=== PATIENT | male | born 1935 | race Two or more races ===

== ENCOUNTER 2016-10-18 15:01 | Inpatient (IN) | payer MEDICARE, MEDICAID ==
[~2016-10-18] VITALS: Ht 170.2 cm; Wt 54.4 kg
[2016-10-18 15:15] VITALS: BP 110/59
--- NOTE | 2016-10-18 16:05 | Emergency Room Report ---
History of Present Illness General Chief Complaint: Multiple Trauma/Fall Source: Patient, EMS Present Illness HPI 80 YO M BIBEMS for witnessed fall at home by HC worker. [facility] given [facility]x to "prevent an infection." States gaspar cath also was replaced. Not sure which Abx he was given. States he slipped and fell on back at home. EMS endorses signicant orthostatic hypotension on scene. Denies precipitating chest pain, SOB, palpitations, headache. Denies hitting head, headache, nausea/vomiting, blurry/ change of vision. Denies being on HTN medication. Allergies: Coded Allergies: No Known Allergies (Unverified , 10/18/16) Patient History Past Medical History: other - BPH with indwelling catheter Past Surgical History: none Pertinent Family History: none Social History: Denies: alcohol use, drug use, smoking Immunizations: UTD Reviewed Nursing Documentation: PMH: Agreed, PSxH: Agreed Nursing Documentation-PMH Past Medical History: No History, Except For Review of Systems All Other Systems: negative except mentioned in HPI Physical Exam Vital Signs Date Time Temp Pulse Resp B/P Pulse Ox O2 Delivery O2 Flow Rate FiO2 10/18/16 14:59 98.8 94 18 103/54 99 Room Air Sp02 EP Interpretation: abnormal General Appearance: normal inspection, well appearing, no apparent distress, alert, GCS 15, non-toxic Head: normocephalic, atraumatic Eyes: bilateral eye EOMI, bilateral eye PERRL ENT: normal ENT inspection, hearing grossly normal, normal voice Neck: normal inspection, full range of motion, supple, thyroid normal, no meningismus, no bony tend Respiratory: normal inspection, lungs clear, normal breath sounds, no respiratory distress, no retraction, no wheezing Cardiovascular #1: regular rate, rhythm, no edema Gastrointestinal: normal inspection, normal bowel sounds, non tender, soft, no guarding, no hernia Genitourinary: no CVA tenderness Musculoskeletal: normal inspection, normal range of motion, Dhruv's Sign negative, other - multiple acute abrasions overling midline of thoracic spine. Neurologic: normal inspection, alert, responsive, finish photographer III-XII nml as tested, motor strength/tone normal, speech normal, other - oriented to name, place, [place] president but not date Psychiatric: normal inspection, judgement/insight normal, mood/affect normal Skin: normal inspection, normal color, no rash Medical Decision Making Medicare Attestation I Tiara Saleh MD hereby attest that the medical record entry for date of service, 08/23/16 accurately reflects signatures/notations that I made in my capacity as MD when I treated/diagnosed the above listed Medicare beneficiary. I attest that this information is true, accurate and complete to the best of my knowledge. I understand that any falsification, omission, or concealment of material fact may subject me to administrative, civil, or criminal liability. This patient warrants hospital admission for extreme of age and has a condition that cannot be treated as outpatient. Diagnostic Impression: Primary Impression: Fall Qualified Codes: W19.XXXA - Unspecified fall, initial encounter Additional Impressions: Orthostatic hypotension Abrasion of back Qualified Codes: S20.412A - Abrasion of left back wall of thorax, initial encounter UTI (urinary tract infection) Qualified Codes: N30.00 - Acute cystitis without hematuria CKD (chronic kidney disease) Qualified Codes: N18.9 - Chronic kidney disease, unspecified ER Course RN checked BP and patient with significant orthostasis on standing in ED. Normalized BP while lying down. No signs of head trauma. No focal neuro deficits. Signs of trauma mild to thoracic spine Labs: leuks 15k. H&H stable. Elevated SerumCr. UA pending Thoracic spine Xray: no acute fx on ED review CXR negative for PNA Empiric Abx given for ?UTI for which patient saw PMD earlier Endorsed to Dr Currie for tele admission, monitoring of orthostatics, UTI EKG Diagnostic Results Rate: normal, other - 1st degree AV block Rhythm: NSR ST Segments: no acute changes Rhythm Strip Diag. Results EP Interpretation: yes Rate: 55 Rhythm: NSR, no PVC's, no ectopy Chest X-Ray Diagnostic Results EP Interpretation: Yes Findings: no consolidation, no effusion, no pneumothorax, no acute cardiopulmonary disease Number of Views: 1 Other X-Ray Diagnostic Results Other X-Ray Diagnostic Results : X-Ray Ordered: Thoracic spine xray EP Interpretation: Yes Findings: no fractures, no dislocation, no soft tissue swelling Number of Views: 2 Last Vital Signs Date Time Temp Pulse Resp B/P Pulse Ox O2 Delivery O2 Flow Rate FiO2 10/18/16 15:15 98.8 95 18 110/59 99 Room Air Status: improved Disposition: ADMITTED INPATIENT Condition: Serious Referrals: NOT CHOSEN RAJWINDER/,REFERRING (PCP) TIARA SALEH M.D. Oct 18, 2016 16:05
[2016-10-18 16:17] LABS: BASOPHILS % (AUTO) 1.1 % (0.0-2.0); EOSINOPHILS % (AUTO) 0.6 % (0.0-3.0); LYMPHOCYTES % (AUTO) 6.9 % (20.0-45.0); MEAN CORPUSCULAR HEMOGLOBIN 30.5 PG (27.0-31.0); MEAN CORPUSCULAR HGB CONC 33.2 G/DL (32.0-36.0); MEAN CORPUSCULAR VOLUME 92 FL (80-99); MEAN PLATELET VOLUME 7.5 FL (6.5-10.1); MONOCYTES % (AUTO) 7.2 % (1.0-10.0); NEUTROPHILS % (AUTO) 84.3 % (45.0-75.0); PLATELET COUNT 179 K/UL (150-450); RED CELL DISTRIBUTION WIDTH 14.2 % (11.6-14.8); WHITE BLOOD COUNT 15.3 K/UL (4.8-10.8)
[2016-10-18 16:45] LABS: ALANINE AMINOTRANSFERASE 22 U/L (3-41); ANION GAP 16 (5-15); ASPARTATE AMINO TRANSFERASE 32 U/L (5-40); CALCIUM 8.6 mg/dL (8.6-10.2); CARBON DIOXIDE 20 mEQ/L (20-30); CHLORIDE 103 mEQ/L (98-107); CREATININE 3.2 mg/dL (0.7-1.2); HEMOLYSIS 29; POTASSIUM 4.4 mEQ/L (3.4-4.9); SODIUM 139 mEQ/L (135-145); TOTAL PROTEIN 6.4 g/dL (6.6-8.7)
[2016-10-18 17:03] LABS: TROPONIN I < 0.30 ng/mL (<=0.30)
[2016-10-18 18:41] VITALS: BP 116/77
[2016-10-18] MEDS ORDERED: Miralax 17gm pkt ORAL PRN (19:15)
[2016-10-18] MEDS ORDERED: DuoNeb 0.5-3(2.5)mg/3ml neb HHN PRN (19:15)
[2016-10-18] MEDS ORDERED: Nitroglycerin Subl 0.4mg tab (Bottle Of 25) SL PRN (19:15)
[2016-10-18] MEDS ORDERED: Morphine Sulfate 2mg/ml Inj IVP PRN (19:15)
[2016-10-18 20:56] VITALS: BP 145/91
[2016-10-18] MEDS ORDERED: Cefepime HCl 2 GM in D5W 110 ML IV SCH (21:00)
[2016-10-18 21:59] VITALS: BP 149/84
[2016-10-18] MEDS: Heparin 5000 units/ml inj SUBQ SCH (23:09)
[2016-10-19] VITALS: BP 98/54
[2016-10-19] MEDS ORDERED: Vancomycin 1 GM in D5W 275 ML IV SCH (00:30)
[2016-10-19] MEDS ORDERED: Cefepime HCl 2 GM in D5W 110 ML IV SCH (01:00)
[2016-10-19] MEDS ORDERED: Vancomycin 1gm inj IVPB ONE (01:32)
[2016-10-19] MEDS ORDERED: Cefepime 2gm ONE (02:43)
[2016-10-19] MEDS: Cefepime HCl 2 GM in D5W 110 ML IV SCH (03:23)
[2016-10-19 04:00] VITALS: BP 96/54
[2016-10-19 08:00] LABS: BASOPHILS % (AUTO) 0.8 % (0.0-2.0); EOSINOPHILS % (AUTO) 1.5 % (0.0-3.0); MEAN CORPUSCULAR HEMOGLOBIN 30.3 PG (27.0-31.0); MEAN CORPUSCULAR HGB CONC 33.8 G/DL (32.0-36.0); MEAN CORPUSCULAR VOLUME 90 FL (80-99); MEAN PLATELET VOLUME 8.2 FL (6.5-10.1); MONOCYTES % (AUTO) 7.1 % (1.0-10.0); NEUTROPHILS % (AUTO) 77.7 % (45.0-75.0); PLATELET COUNT 166 K/UL (150-450); RED BLOOD COUNT 3.26 M/UL (4.70-6.10); RED CELL DISTRIBUTION WIDTH 14.2 % (11.6-14.8); WHITE BLOOD COUNT 10.7 K/UL (4.8-10.8)
[2016-10-19 08:11] VITALS: BP 126/66
[2016-10-19 08:21] LABS: ALANINE AMINOTRANSFERASE 16 U/L (3-41); ANION GAP 15 (5-15); ASPARTATE AMINO TRANSFERASE 21 U/L (5-40); CALCIUM 8.2 mg/dL (8.6-10.2); CARBON DIOXIDE 20 mEQ/L (20-30); CHLORIDE 105 mEQ/L (98-107); HEMOLYSIS 2; POTASSIUM 3.8 mEQ/L (3.4-4.9); SODIUM 140 mEQ/L (135-145); TOTAL PROTEIN 5.7 g/dL (6.6-8.7)
[2016-10-19] MEDS: Heparin 5000 units/ml inj SUBQ SCH ×2 (10:21→20:13)
--- NOTE | 2016-10-19 10:30 | Diagnostic Imaging Report ---
Indications: FALL Technique: Two views of the thoracic spine Comparison: None Findings: There is thoracolumbar scoliotic deformity. The remainder the bony alignment is normal. There is also thoracic kyphosis. Vertebral body heights are preserved. There is mild degenerative disc narrowing at multiple levels. The bones are osteoporotic. No acute fractures. No dislocations. The pedicles are intact. No gross paraspinous mass. Impression: No acute bony trauma Thoracic scoliotic deformity and thoracic kyphosis Disc degeneration Osteoporotic change
--- NOTE | 2016-10-19 10:32 | Diagnostic Imaging Report ---
Indication: FALL, chest pain Technique: One view of the chest Comparison: none Findings: Lungs and pleural spaces are clear. Heart size is normal. Impression: No acute process
--- NOTE | 2016-10-19 10:51 | Consultation ---
Consult Note Consult Note ID Dic # [id number] LORENZO CUTLER M.D. Oct 19, 2016 10:51
[2016-10-19 11:46] VITALS: BP 92/53
--- NOTE | 2016-10-19 13:33 | History and Physical ---
History of Present Illness General Date patient seen: Oct 19, 2016 Reason for Hospitalization: Multiple Trauma/Fall Present Illness HPI 80 year old male was brought in by paramedics for witnessed fall at home by HC worker. Patient was returning home from visit from [facility] office where he was given Abx. His gaspar cath also was replaced. He slipped and fell on back at home. EMS endorses significant orthostatic hypotension on scene. Pt was found to have leukocytosis and ATN in er, therefore he is being admitted for further evaluation. Allergies: Coded Allergies: No Known Allergies (Unverified , 10/18/16) Patient History Healthcare decision maker Resuscitation status Full Code Advanced Directive on File Past Medical/Surgical History Past Medical/Surgical History: (1) Chronic indwelling Gaspar catheter Review of Systems All Other Systems: negative except mentioned in HPI Physical Exam Lines, tubes and drains: peripheral HEENT: normocephalic, atraumatic Neck: non-tender, normal alignment Respiratory/Chest: chest wall non-tender, normal breath sounds Abdomen: normal bowel sounds, soft, abnormal bowel sounds Last 24 Hour Vital Signs Date Time Temp Pulse Resp B/P Pulse Ox O2 Delivery O2 Flow Rate FiO2 10/19/16 11:46 97.0 81 20 92/53 99 Room Air 10/19/16 08:11 97.3 73 20 126/66 99 Room Air 10/19/16 04:00 75 10/19/16 04:00 97.7 76 18 96/54 Room Air 10/19/16 00:00 91 10/19/16 00:00 99.5 92 16 98/54 95 Room Air 10/18/16 21:59 97.8 97 21 149/84 99 Room Air 10/18/16 21:30 97.8 95 20 145/91 99 Room Air 10/18/16 20:56 97.8 95 20 145/91 99 Room Air 10/18/16 18:41 98.0 97 19 116/77 97 Room Air 10/18/16 15:15 98.8 95 18 110/59 99 Room Air 10/18/16 14:59 98.8 94 18 103/54 99 Room Air Intake and Output 10/18/16 10/19/16 19:00 07:00 Intake Total 735.0 ml Output Total 1300 ml Balance -565.0 ml Intake IV Total 735.0 ml Output Urine Total 1300 ml Laboratory Tests Test 10/18/16 15:58 10/19/16 06:35 White Blood Count 15.3 K/UL (4.8-10.8) H 10.7 K/UL (4.8-10.8) Red Blood Count 3.20 M/UL (4.70-6.10) L 3.26 M/UL (4.70-6.10) L Hemoglobin 9.8 G/DL (14.2-18.0) L 9.9 G/DL (14.2-18.0) L Hematocrit 29.4 % (42.0-52.0) L 29.2 % (42.0-52.0) L Mean Corpuscular Volume 92 FL (80-99) 90 FL (80-99) Mean Corpuscular Hemoglobin 30.5 PG (27.0-31.0) 30.3 PG (27.0-31.0) Mean Corpuscular Hemoglobin Concent 33.2 G/DL (32.0-36.0) 33.8 G/DL (32.0-36.0) Red Cell Distribution Width 14.2 % (11.6-14.8) 14.2 % (11.6-14.8) Platelet Count 179 K/UL (150-450) 166 K/UL (150-450) Mean Platelet Volume 7.5 FL (6.5-10.1) 8.2 FL (6.5-10.1) Neutrophils (%) (Auto) 84.3 % (45.0-75.0) H 77.7 % (45.0-75.0) H Lymphocytes (%) (Auto) 6.9 % (20.0-45.0) L 13.0 % (20.0-45.0) L Monocytes (%) (Auto) 7.2 % (1.0-10.0) 7.1 % (1.0-10.0) Eosinophils (%) (Auto) 0.6 % (0.0-3.0) 1.5 % (0.0-3.0) Basophils (%) (Auto) 1.1 % (0.0-2.0) 0.8 % (0.0-2.0) Sodium Level 139 mEQ/L (135-145) 140 mEQ/L (135-145) Potassium Level 4.4 mEQ/L (3.4-4.9) 3.8 mEQ/L (3.4-4.9) Chloride Level 103 mEQ/L (98-107) 105 mEQ/L (98-107) Carbon Dioxide Level 20 mEQ/L (20-30) 20 mEQ/L (20-30) Anion Gap 16 (5-15) H 15 (5-15) Blood Urea Nitrogen 58 mg/dL (7-23) H 47 mg/dL (7-23) H Creatinine 3.2 mg/dL (0.7-1.2) H 2.0 mg/dL (0.7-1.2) H Estimat Glomerular Filtration Rate mL/min (>60) mL/min (>60) Glucose Level 106 mg/dL (74-106) 91 mg/dL (74-106) Calcium Level 8.6 mg/dL (8.6-10.2) 8.2 mg/dL (8.6-10.2) L Total Bilirubin 0.6 mg/dL (0.0-1.2) 0.6 mg/dL (0.0-1.2) Aspartate Amino Transf (AST/SGOT) 32 U/L (5-40) 21 U/L (5-40) Alanine Aminotransferase (ALT/SGPT) 22 U/L (3-41) 16 U/L (3-41) Alkaline Phosphatase 72 U/L (40-129) 63 U/L (40-129) Total Creatine Kinase 291 U/L (38-174) H Creatine Kinase MB Pending Troponin I < 0.30 ng/mL (<=0.30) Total Protein 6.4 g/dL (6.6-8.7) L 5.7 g/dL (6.6-8.7) L Albumin 3.3 g/dL (3.5-5.2) L 2.9 g/dL (3.5-5.2) L Globulin 3.1 g/dL 2.8 g/dL Albumin/Globulin Ratio 1.0 (1.0-2.7) 1.0 (1.0-2.7) Height (Feet): 5 Height (Inches): 7.00 Weight (Pounds): 120 Medications Current Medications Medications (Trade) Dose Ordered Sig/Amy Route PRN Reason Start Time Stop Time Status Last Admin Dose Admin Acetaminophen (Tylenol) 650 mg Q4H PRN ORAL fever 10/18/16 19:15 11/17/16 19:14 Albuterol/ Ipratropium (DuoNeb 0.5-3(2.5)mg/3ml) 3 ml Q4H PRN HHN Shortness of Breath 10/18/16 19:15 10/23/16 19:14 Cefepime HCl/ Dextrose (Maxipime/D5W) 110 ml @ 220 mls/hr Q24H IV 10/19/16 03:00 10/26/16 02:59 10/19/16 03:23 Heparin Sodium (Porcine) (Heparin 5000 units/ml) 5,000 units EVERY 12 HOURS SUBQ 10/18/16 21:00 11/17/16 20:59 10/19/16 10:21 Morphine Sulfate (Morphine Sulfate) 2 mg Q4H PRN IVP Moderate Pain (Pain Scale 4-6) 10/18/16 19:15 10/25/16 19:14 Nitroglycerin 0.4 mg 0.4 mg Q5MIN X 3 DOSES PRN SL Prn Chest Pain 10/18/16 19:15 11/17/16 19:14 Ondansetron HCl (Zofran) 4 mg Q6H PRN IVP Nausea & Vomiting 10/18/16 19:15 11/17/16 19:14 Polyethylene Glycol (Miralax) 17 gm DAILYPRN PRN ORAL Constipation 10/18/16 19:15 11/17/16 19:14 Sodium Chloride (Sodium Chloride 1000ml bag) 1,000 ml @ 50 mls/hr Q20H IVLG 10/18/16 21:00 11/17/16 20:59 10/18/16 23:08 Temazepam (Restoril) 15 mg HSPRN PRN ORAL Insomnia 10/18/16 19:15 10/25/16 19:14 10/19/16 01:39 Assessment/Plan Problem List: (1) Sepsis ICD Codes: A41.9 - Sepsis, unspecified organism SNOMED: 03898109 (2) ATN (acute tubular necrosis) ICD Codes: N17.0 - Acute kidney failure with tubular necrosis SNOMED: 89874114 (3) Anemia ICD Codes: D64.9 - Anemia, unspecified SNOMED: 565731425 (4) UTI (urinary tract infection) ICD Codes: N39.0 - Urinary tract infection, site not specified SNOMED: 32641980 Qualifiers: Qualified Codes: N30.00 - Acute cystitis without hematuria (5) Orthostatic hypotension ICD Codes: I95.1 - Orthostatic hypotension SNOMED: 38933507 (6) Chronic indwelling Gaspar catheter ICD Codes: Z92.89 - Personal history of other medical treatment SNOMED: 218166401 Assessment/Plan IV fluids IV antibiotics check cultures renal w/u anemia w/u echo obtain home meds pt/ot CHAN JAVED Oct 19, 2016 13:33
[2016-10-19 15:38] LABS: INR 1.1 (0.9-1.1); PROTHROMBIN TIME 11.1 SEC (9.30-11.50)
[2016-10-19 15:56] LABS: ALANINE AMINOTRANSFERASE 17 U/L (3-41); ANION GAP 15 (5-15); ASPARTATE AMINO TRANSFERASE 21 U/L (5-40); CALCIUM 8.6 mg/dL (8.6-10.2); CARBON DIOXIDE 21 mEQ/L (20-30); CHLORIDE 104 mEQ/L (98-107); CREATININE 1.9 mg/dL (0.7-1.2); HEMOLYSIS 2; MAGNESIUM 1.7 mg/dL (1.7-2.5); PHOSPHORUS 2.9 mg/dL (2.5-4.8); POTASSIUM 4.1 mEQ/L (3.4-4.9); SODIUM 140 mEQ/L (135-145); TOTAL PROTEIN 6.5 g/dL (6.6-8.7)
--- NOTE | 2016-10-19 15:57 | Consultation ---
DATE OF CONSULTATION: INFECTIOUS DISEASE CONSULTATION CONSULTING PHYSICIAN: Robert Barrett M.D. REFERRING PHYSICIAN: Missy Currie M.D. REASON FOR CONSULTATION: Evaluation of the patient for possible urinary tract infection. HISTORY OF PRESENT ILLNESS: The patient is an 80-year-old male who was brought to the hospital after the patient had a fall. Apparently the patient was recently seen in the urology clinic. The Milner was changed. The patient was given some antibiotics for prevention of infection (assumed urinary infection). The patient denies having fever, chills, cough. Infectious disease consultation has been requested for further evaluation of the patient's antibiotic management. PAST MEDICAL HISTORY: Significant for: 1. Cholelithiasis. 2. History of urinary obstruction requiring placement of Milner catheter. MEDICATIONS: The patient is on IV vancomycin and cefepime. SOCIAL HISTORY: Negative for alcohol, drug abuse, or smoking FAMILY HISTORY: Noncontributory. PHYSICAL EXAMINATION: VITAL SIGNS: Temperature 97.2 degrees, blood pressure 126/66, respiratory rate 20. HEENT: Mild pale conjunctivae. No icterus. NECK: No lymphadenopathy. CHEST: Coarse breath sounds. HEART: S1 and S2. ABDOMEN: Soft and nontender. EXTREMITIES: No cyanosis. NEUROLOGIC: Awake. LABORATORY AND DIAGNOSTIC DATA: White blood cell 15.3 at time of admission, hemoglobin 9.83, platelets 175,000. White blood cells repeat today is 10.7. BUN 58 and creatinine 2. Chest x-ray, no acute process. Spine x-ray showed kyphosis. ASSESSMENT: The patient is an 80-year-old male who was brought to the hospital after the patient had fall. The patient at the time of admission had leukocytosis, possibly due to acute stress however the underlying urinary tract infection needs to be considered and also possible bacteremia. PLAN: 1. We will continue the patient on cefepime. Discontinue vancomycin. 2. Monitor blood culture. 3. Monitor urine culture. 4. We will send urinalysis. Based on the patient's clinical course and laboratories, we will do further recommendations. Thank you, Dr. Currie, for allowing me to participate in the care of this patient. I will follow the patient with you during this hospitalization. Robert Barrett M.D. DR: Dora JOB#: [id number] CC:
[2016-10-19 16:00] VITALS: BP 116/61
[2016-10-19 18:19] LABS: ANISOCYTOSIS 1+; BAND NEUTROPHILS % (MANUAL) 2 % (0-8); BASOPHILS % (MANUAL) 1 % (0-2); EOSINOPHILS % (MANUAL) 2 % (0-3); LYMPHOCYTES % (MANUAL) 19 % (20-45); NEUTROPHILS % (MANUAL) 69 % (45-75); NUCLEATED RED BLOOD CELLS 1 /100 WBC; POLYCHROMASIA 1+; TOTAL CELLS COUNTED 100
[2016-10-19 18:20] LABS: PATH BLOOD SMEAR/OMC SENT TO PATHOLOGIST; PLATELET ESTIMATE ADEQUATE; PLATELET MORPHOLOGY NORMAL
[2016-10-19 18:28] LABS: APPEARANCE,URINE SLIGHTLY CLOUDY; KETONES,URINE NEGATIVE (NEGATIVE); LEUKOCYTE ESTERASE ,URINE 3+ (NEGATIVE); NITRITE,URINE NEGATIVE (NEGATIVE); PH,URINE 5 (4.5-8.0); PROTEIN,URINE 2+ (NEGATIVE); UROBILINOGEN,URINE NORMAL MG/DL (0.0-1.0)
[2016-10-19 18:36] LABS: BACTERIA,URINE MODERATE /HPF; WBC,URINE TNTC /HPF (0 - 0)
[2016-10-19 19:11] LABS: RETICULOCYTE COUNT 0.4 % (0.0-2.0)
[2016-10-19 20:00] VITALS: BP 126/73
--- NOTE | 2016-10-19 21:10 | Cardiology Progress Note ---
Assessment/Plan Assessment/Plan orthostatic hypotesnion with tachy miracleley volume related bladder otulet obstruction renal insuf imporving with hydration uti ivf repeat orthsrttic vitasl if remain orthsattic post hydration will nee to evlat for possible causes of autonomic dysfunction if no recurrenc ok to dc home when ok with ID [id number] Objective Last 24 Hour Vital Signs Date Time Temp Pulse Resp B/P Pulse Ox O2 Delivery O2 Flow Rate FiO2 10/19/16 20:00 96.1 80 18 126/73 98 Room Air 10/19/16 16:00 97.9 81 18 116/61 99 Room Air 10/19/16 16:00 80 10/19/16 12:03 74 10/19/16 11:46 97.0 81 20 92/53 99 Room Air 10/19/16 08:11 97.3 73 20 126/66 99 Room Air 10/19/16 07:34 77 10/19/16 04:00 75 10/19/16 04:00 97.7 76 18 96/54 Room Air 10/19/16 00:00 91 10/19/16 00:00 99.5 92 16 98/54 95 Room Air 10/18/16 21:59 97.8 97 21 149/84 99 Room Air 10/18/16 21:30 97.8 95 20 145/91 99 Room Air Intake and Output 10/18/16 10/19/16 19:00 07:00 Intake Total 735.0 ml Output Total 1300 ml Balance -565.0 ml IV Total 735.0 ml Output Urine Total 1300 ml Laboratory Tests Test 10/19/16 06:35 10/19/16 14:40 10/19/16 18:00 White Blood Count 10.7 K/UL (4.8-10.8) Red Blood Count 3.26 M/UL (4.70-6.10) L Hemoglobin 9.9 G/DL (14.2-18.0) L Hematocrit 29.2 % (42.0-52.0) L Mean Corpuscular Volume 90 FL (80-99) Mean Corpuscular Hemoglobin 30.3 PG (27.0-31.0) Mean Corpuscular Hemoglobin Concent 33.8 G/DL (32.0-36.0) Red Cell Distribution Width 14.2 % (11.6-14.8) Platelet Count 166 K/UL (150-450) Mean Platelet Volume 8.2 FL (6.5-10.1) Neutrophils (%) (Auto) 77.7 % (45.0-75.0) H Lymphocytes (%) (Auto) 13.0 % (20.0-45.0) L Monocytes (%) (Auto) 7.1 % (1.0-10.0) Eosinophils (%) (Auto) 1.5 % (0.0-3.0) Basophils (%) (Auto) 0.8 % (0.0-2.0) Differential Total Cells Counted 100 Neutrophils % (Manual) 69 % (45-75) Lymphocytes % (Manual) 19 % (20-45) L Monocytes % (Manual) 7 % (1-10) Eosinophils % (Manual) 2 % (0-3) Basophils % (Manual) 1 % (0-2) Band Neutrophils 2 % (0-8) Nucleated Red Blood Cells 1 /100 WBC Platelet Estimate Adequate Platelet Morphology Normal Polychromasia 1+ Anisocytosis 1+ Sodium Level 140 mEQ/L (135-145) 140 mEQ/L (135-145) Potassium Level 3.8 mEQ/L (3.4-4.9) 4.1 mEQ/L (3.4-4.9) Chloride Level 105 mEQ/L (98-107) 104 mEQ/L (98-107) Carbon Dioxide Level 20 mEQ/L (20-30) 21 mEQ/L (20-30) Anion Gap 15 (5-15) 15 (5-15) Blood Urea Nitrogen 47 mg/dL (7-23) H 43 mg/dL (7-23) H Creatinine 2.0 mg/dL (0.7-1.2) H 1.9 mg/dL (0.7-1.2) H Estimat Glomerular Filtration Rate mL/min (>60) mL/min (>60) Glucose Level 91 mg/dL (74-106) 109 mg/dL (74-106) H Calcium Level 8.2 mg/dL (8.6-10.2) L 8.6 mg/dL (8.6-10.2) Total Bilirubin 0.6 mg/dL (0.0-1.2) 0.5 mg/dL (0.0-1.2) Aspartate Amino Transf (AST/SGOT) 21 U/L (5-40) 21 U/L (5-40) Alanine Aminotransferase (ALT/SGPT) 16 U/L (3-41) 17 U/L (3-41) Alkaline Phosphatase 63 U/L (40-129) 72 U/L (40-129) Total Protein 5.7 g/dL (6.6-8.7) L 6.5 g/dL (6.6-8.7) L Albumin 2.9 g/dL (3.5-5.2) L 3.4 g/dL (3.5-5.2) L Globulin 2.8 g/dL 3.1 g/dL Albumin/Globulin Ratio 1.0 (1.0-2.7) 1.0 (1.0-2.7) Erythrocyte Sedimentation Rate 90 MM/HR (0-30) H Reticulocyte Count 0.4 % (0.0-2.0) Prothrombin Time 11.1 SEC (9.30-11.50) Prothromb Time International Ratio 1.1 (0.9-1.1) Activated Partial Thromboplast Time 33 SEC (23-33) Plasma/Serum Osmolality Pending Uric Acid Pending Phosphorus Level 2.9 mg/dL (2.5-4.8) Magnesium Level 1.7 mg/dL (1.7-2.5) Iron Level Pending Unsaturated Iron Binding Pending Lactate Dehydrogenase Pending Total Creatine Kinase 171 U/L (38-174) Carcinoembryonic Antigen Pending Vitamin B12 Level Pending Folate Pending Thyroid Stimulating Hormone (TSH) Pending Free Thyroxine Pending Free Triiodothyronine Pending Cortisol Pending Urine Color Pale yellow Urine Appearance Slightly cloudy Urine pH 5 (4.5-8.0) Urine Specific Weiser 1.015 (1.005-1.035) Urine Protein 2+ (NEGATIVE) H Urine Glucose (UA) Negative (NEGATIVE) Urine Ketones Negative (NEGATIVE) Urine Occult Blood 5+ (NEGATIVE) H Urine Nitrite Negative (NEGATIVE) Urine Bilirubin Negative (NEGATIVE) Urine Urobilinogen Normal MG/DL (0.0-1.0) Urine Leukocyte Esterase 3+ (NEGATIVE) H Urine RBC 5-10 /HPF (0 - 0) H Urine WBC Tntc /HPF (0 - 0) H Urine Squamous Epithelial Cells None /LPF (NONE/OCC) Urine Bacteria Moderate /HPF (NONE) H Urine Eosinophils None seen Urine Osmolality Pending Urine Random Sodium Pending Urine Random Chloride Pending Urine Potassium Timed Pending TYLER ANSARI Oct 19, 2016 21:09
[2016-10-20] VITALS: BP 115/68
--- NOTE | 2016-10-20 00:57 | Consultation ---
DATE OF CONSULTATION: CARDIOLOGY CONSULTATION. REFERRING PHYSICIAN: Missy Currie M.D. REASON FOR REFERRAL: Orthostatic hypotension. HISTORY OF PRESENT ILLNESS: This is a elderly gentleman who was brought in by paramedics apparently because of a nonsyncopal fall down two steps. No loss of consciousness. No neck or back pain. Ambulated on his own into the house, some minor abrasion to the back. He was seen and evaluated paramedics, they documented a blood pressure of 103/63, it was subsequently 78/48, apparently on standing with a heart increased from 100 to 120 according to their notes so the patient was brought to the emergency room at [facility] [place] and has been admitted. The patient absolutely denies any pain, pressure, or tightness in the chest. He does not have dyspnea on exertion. There is no PND, uses one pillow. He denies any dizziness on standing on a usual basis. He thinks this is a one time event that he has had, not a recurrent issue PAST MEDICAL HISTORY: Bladder infection on two several occasions. Denies any diabetes or high blood pressure. No history of heart attack, cancer, stroke, hepatitis, tuberculosis, asthma, emphysema. No ulcers. He says he thinks there might be some kind of kidney problems, liver problems, thyroid problems, anemia, or arthritis. The patient does have history of cholelithiasis, history of urinary obstruction with history of Milner replacement previously. ALLERGIES: He is not allergic to any medications. MEDICATIONS: and Detrol . SOCIAL HISTORY: Denies any smoking, drinking alcoholic beverages. No drug use. REVIEW OF SYSTEMS: Gastrointestinal: Denies. Pulmonary: He denies. Constitutional: Denies. Cardiac: Denies. Neurologic: Denies. PHYSICAL EXAMINATION: GENERAL: Shows to be elderly gentleman, in no apparent distress. VITAL SIGNS: Blood pressure has ranged anywhere between 94/54 to 149/84. Unfortunately I do not have much more information than that. HEENT: Unremarkable. NECK: Supple. No jugular venous distention. No abdominojugular reflux noted. LUNGS: Clear to auscultation and percussion. CARDIAC: Regular rate and rhythm. No heaves or thrills noted. ABDOMEN: Soft and nontender. Positive bowel sounds. EXTREMITIES: There is no clubbing, cyanosis, nor is there any edema. LABORATORY AND DIAGNOSTIC DATA: Sodium is 141, potassium 4.1, chloride 104, bicarbonate of 21, BUN 42, creatinine 4.9, in retrospect that yesterday's blood tests shows sodium 139, potassium 4.3, chloride 103, bicarbonate 20, BUN of 58, creatinine 3.2. The improvement in the renal function is likely secondary to volume depletion. He had a glucose of 105 today. Magnesium 1.7. His liver tests are normal. The total CK of 171 down from 291. Troponin first set was negative. Cortisol nd B12 levels are pending. ASSESSMENT: 1. Nonsyncopal fall. 2. Orthostatic hypotension with orthostatic tachycardia suggesting volume depletion. 3. 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 4. Renal insufficiency, but seemed to have improved with hydration. PLAN: Dr. Currie, this patient was seen in cardiac consultation. He has received some intravenous fluids and he has got extensive laboratories pending. At this time, he has received some intravenous fluids for possibility of an infection. Orthostatic vitals should be repeated in the morning after some time of hydration and some time of lapse moderate amount of dysfunction such as cortisol and vitamin B12 are pending at this time as well as thyroid-stimulating hormone. If there is recurrence of orthostatic hypotension despite IV fluid administration may need workup of autonomic dysfunction for that particular cause. The patient will be followed accordingly. Keo Schultz M.D. DR: Stanford JOB#: [id number] CC:
[2016-10-20] MEDS: Cefepime HCl 2 GM in D5W 110 ML IV SCH (03:09)
[2016-10-20 04:00] VITALS: BP 137/79
[2016-10-20 08:05] VITALS: BP 134/66
[2016-10-20 08:13] LABS: BASOPHILS % (AUTO) 0.5 % (0.0-2.0); EOSINOPHILS % (AUTO) 1.9 % (0.0-3.0); LYMPHOCYTES % (AUTO) 17.7 % (20.0-45.0); MEAN CORPUSCULAR HEMOGLOBIN 30.4 PG (27.0-31.0); MEAN CORPUSCULAR HGB CONC 33.8 G/DL (32.0-36.0); MEAN CORPUSCULAR VOLUME 90 FL (80-99); MEAN PLATELET VOLUME 8.1 FL (6.5-10.1); MONOCYTES % (AUTO) 6.9 % (1.0-10.0); NEUTROPHILS % (AUTO) 72.9 % (45.0-75.0); PLATELET COUNT 189 K/UL (150-450); RED BLOOD COUNT 3.48 M/UL (4.70-6.10); RED CELL DISTRIBUTION WIDTH 13.8 % (11.6-14.8)
--- NOTE | 2016-10-20 09:26 | Diagnostic Imaging Report ---
Indication: Abnormal renal function tests Technique: Grayscale and duplex images of the kidneys, retroperitoneum, and bladder were obtained. Comparison: Findings: Right kidney measures 9.2 cm in length. Left kidney measures 9.6 cm in length. Both kidneys demonstrate normal echogenicity. No hydronephrosis. There are renal cysts bilaterally. The largest is in the left kidney, measuring 5 cm long axis dimension.. Normal inferior vena cava. Bladder is empty, contains a Milner catheter. Impression: Negative for hydronephrosis Empty bladder with Milner catheter. Bilateral renal cysts incidentally noted
[2016-10-20] MEDS: Docusate 100mg cap ORAL SCH ×3 (09:47→17:34)
[2016-10-20] MEDS: Heparin 5000 units/ml inj SUBQ SCH ×2 (09:50→21:00)
--- NOTE | 2016-10-20 10:44 | Infectious Diseases Prog Note ---
Assessment/Plan Assessment/Plan A: Patient is an 80-year-old male w Leukocytosis , SP ( due to acute stress more than UTI ) doubt UTI m ( nl WBC and afebrile ) Pyuria RAVI improving US : Negative for hydronephrosis SP fall Ch Milner Cholelithiasis. History of urinary obstruction PLAN: DC cefepime d# 2 and monitor pt off of AB Rx Monitor blood culture Monitor urine culture. urinalysis Subjective Constitutional: Denies: anorexia, chills, drenching sweats, fatigue, fever, no symptoms, other Allergies: Coded Allergies: No Known Allergies (Unverified , 10/18/16) Objective Vital Signs Last 24 Hour Vital Signs Date Time Temp Pulse Resp B/P Pulse Ox O2 Delivery O2 Flow Rate FiO2 10/20/16 08:22 74 10/20/16 08:05 96.1 74 20 134/66 97 Room Air 10/20/16 04:00 79 82 10/20/16 04:00 85 10/20/16 04:00 97.5 79 16 137/79 98 Room Air 10/20/16 00:00 98.2 81 16 115/68 97 Room Air 10/20/16 00:00 69 10/19/16 20:00 96.1 80 18 126/73 98 Room Air 10/19/16 20:00 81 10/19/16 16:00 97.9 81 18 116/61 99 Room Air 10/19/16 16:00 80 10/19/16 12:03 74 10/19/16 11:46 97.0 81 20 92/53 99 Room Air Height (Feet): 5 Height (Inches): 7.00 Weight (Pounds): 120 HEENT: atraumatic Respiratory/Chest: normal breath sounds Cardiovascular: no gallop/murmur Abdomen: non distended Laboratory Tests Test 10/19/16 14:40 10/19/16 18:00 10/20/16 06:45 Erythrocyte Sedimentation Rate 90 MM/HR (0-30) H Reticulocyte Count 0.4 % (0.0-2.0) Prothrombin Time 11.1 SEC (9.30-11.50) Prothromb Time International Ratio 1.1 (0.9-1.1) Activated Partial Thromboplast Time 33 SEC (23-33) Sodium Level 140 mEQ/L (135-145) Potassium Level 4.1 mEQ/L (3.4-4.9) Chloride Level 104 mEQ/L (98-107) Carbon Dioxide Level 21 mEQ/L (20-30) Anion Gap 15 (5-15) Blood Urea Nitrogen 43 mg/dL (7-23) H Creatinine 1.9 mg/dL (0.7-1.2) H Estimat Glomerular Filtration Rate mL/min (>60) Glucose Level 109 mg/dL (74-106) H Plasma/Serum Osmolality Pending Uric Acid Pending Calcium Level 8.6 mg/dL (8.6-10.2) Phosphorus Level 2.9 mg/dL (2.5-4.8) Magnesium Level 1.7 mg/dL (1.7-2.5) Iron Level Pending Unsaturated Iron Binding Pending Total Bilirubin 0.5 mg/dL (0.0-1.2) Aspartate Amino Transf (AST/SGOT) 21 U/L (5-40) Alanine Aminotransferase (ALT/SGPT) 17 U/L (3-41) Alkaline Phosphatase 72 U/L (40-129) Lactate Dehydrogenase Pending Total Creatine Kinase 171 U/L (38-174) Total Protein 6.5 g/dL (6.6-8.7) L Albumin 3.4 g/dL (3.5-5.2) L Globulin 3.1 g/dL Albumin/Globulin Ratio 1.0 (1.0-2.7) Carcinoembryonic Antigen Pending Vitamin B12 Level Pending Folate Pending Thyroid Stimulating Hormone (TSH) Pending Free Thyroxine Pending Free Triiodothyronine Pending Cortisol Pending Urine Color Pale yellow Urine Appearance Slightly cloudy Urine pH 5 (4.5-8.0) Urine Specific [place] 1.015 (1.005-1.035) Urine Protein 2+ (NEGATIVE) H Urine Glucose (UA) Negative (NEGATIVE) Urine Ketones Negative (NEGATIVE) Urine Occult Blood 5+ (NEGATIVE) H Urine Nitrite Negative (NEGATIVE) Urine Bilirubin Negative (NEGATIVE) Urine Urobilinogen Normal MG/DL (0.0-1.0) Urine Leukocyte Esterase 3+ (NEGATIVE) H Urine RBC 5-10 /HPF (0 - 0) H Urine WBC Tntc /HPF (0 - 0) H Urine Squamous Epithelial Cells None /LPF (NONE/OCC) Urine Bacteria Moderate /HPF (NONE) H Urine Eosinophils None seen Urine Osmolality Pending Urine Random Sodium Pending Urine Random Chloride Pending Urine Potassium Timed Pending White Blood Count 9.0 K/UL (4.8-10.8) Red Blood Count 3.48 M/UL (4.70-6.10) L Hemoglobin 10.6 G/DL (14.2-18.0) L Hematocrit 31.3 % (42.0-52.0) L Mean Corpuscular Volume 90 FL (80-99) Mean Corpuscular Hemoglobin 30.4 PG (27.0-31.0) Mean Corpuscular Hemoglobin Concent 33.8 G/DL (32.0-36.0) Red Cell Distribution Width 13.8 % (11.6-14.8) Platelet Count 189 K/UL (150-450) Mean Platelet Volume 8.1 FL (6.5-10.1) Neutrophils (%) (Auto) 72.9 % (45.0-75.0) Lymphocytes (%) (Auto) 17.7 % (20.0-45.0) L Monocytes (%) (Auto) 6.9 % (1.0-10.0) Eosinophils (%) (Auto) 1.9 % (0.0-3.0) Basophils (%) (Auto) 0.5 % (0.0-2.0) Current Medications Medications (Trade) Dose Ordered Sig/Amy Route PRN Reason Start Time Stop Time Status Last Admin Dose Admin Acetaminophen (Tylenol) 650 mg Q4H PRN ORAL fever 10/18/16 19:15 11/17/16 19:14 Albuterol/ Ipratropium (DuoNeb 0.5-3(2.5)mg/3ml) 3 ml Q4H PRN HHN Shortness of Breath 10/18/16 19:15 10/23/16 19:14 Cefepime HCl/ Dextrose (Maxipime/D5W) 110 ml @ 220 mls/hr Q24H IV 10/19/16 03:00 10/26/16 02:59 10/20/16 03:09 Docusate Sodium (Colace) 100 mg TID ORAL 10/20/16 09:00 11/19/16 08:59 10/20/16 09:47 Heparin Sodium (Porcine) (Heparin 5000 units/ml) 5,000 units EVERY 12 HOURS SUBQ 10/18/16 21:00 11/17/16 20:59 10/19/16 20:13 Morphine Sulfate (Morphine Sulfate) 2 mg Q4H PRN IVP Moderate Pain (Pain Scale 4-6) 10/18/16 19:15 10/25/16 19:14 Nitroglycerin 0.4 mg 0.4 mg Q5MIN X 3 DOSES PRN SL Prn Chest Pain 10/18/16 19:15 11/17/16 19:14 Ondansetron HCl (Zofran) 4 mg Q6H PRN IVP Nausea & Vomiting 10/18/16 19:15 11/17/16 19:14 Polyethylene Glycol (Miralax) 17 gm DAILYPRN PRN ORAL Constipation 10/18/16 19:15 11/17/16 19:14 Sodium Chloride (Sodium Chloride 1000ml bag) 1,000 ml @ 50 mls/hr Q20H IVLG 10/18/16 21:00 11/17/16 20:59 10/19/16 17:53 Temazepam (Restoril) 15 mg HSPRN PRN ORAL Insomnia 10/18/16 19:15 10/25/16 19:14 10/19/16 21:30 LORENZO CUTLER M.D. Oct 20, 2016 10:44
[2016-10-20 11:45] VITALS: BP 132/72
--- NOTE | 2016-10-20 12:55 | Pulmonology Progress Note ---
Assessment/Plan Problems: (1) Sepsis (2) ATN (acute tubular necrosis) (3) Anemia (4) UTI (urinary tract infection) (5) Orthostatic hypotension (6) Chronic indwelling Milner catheter Assessment/Plan continue IV fluids renal function improving check electrolytes. Urine is negative abx stopped start ot. Subjective ROS Limited/Unobtainable: No Interval Events: improving Allergies: Coded Allergies: No Known Allergies (Unverified , 10/18/16) Objective Last 24 Hour Vital Signs Date Time Temp Pulse Resp B/P Pulse Ox O2 Delivery O2 Flow Rate FiO2 10/20/16 11:45 72 10/20/16 11:45 96.6 71 20 132/72 96 Room Air 10/20/16 11:40 71 10/20/16 08:22 74 10/20/16 08:05 96.1 74 20 134/66 97 Room Air 10/20/16 04:00 79 82 10/20/16 04:00 85 10/20/16 04:00 97.5 79 16 137/79 98 Room Air 10/20/16 00:00 98.2 81 16 115/68 97 Room Air 10/20/16 00:00 69 10/19/16 20:00 96.1 80 18 126/73 98 Room Air 10/19/16 20:00 81 10/19/16 16:00 97.9 81 18 116/61 99 Room Air 10/19/16 16:00 80 Intake and Output 10/19/16 10/20/16 19:00 07:00 Intake Total 620 ml 710 ml Output Total 300 ml 1000 ml Balance 320 ml -290 ml Intake Oral 120 ml IV Total 500 ml 710 ml Output Urine Total 300 ml 1000 ml General Appearance: WD/WN HEENT: normocephalic, atraumatic Respiratory/Chest: chest wall non-tender, lungs clear Cardiovascular: normal peripheral pulses, normal rate Abdomen: normal bowel sounds, soft, non tender, no scars Extremities: no cyanosis Skin: no ulcers 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 Lymphatic: no neck adenopathy Laboratory Tests 10/19/16 14:40: Erythrocyte Sedimentation Rate 90H, Reticulocyte Count 0.4, Prothrombin Time 11.1, Prothromb Time International Ratio 1.1, Activated Partial Thromboplast Time 33, Sodium Level 140, Potassium Level 4.1, Chloride Level 104, Carbon Dioxide Level 21, Anion Gap 15, Blood Urea Nitrogen 43H, Creatinine 1.9H, Estimat Glomerular Filtration Rate , Glucose Level 109H, Plasma/Serum Osmolality [Pending], Uric Acid [Pending], Calcium Level 8.6, Phosphorus Level 2.9, Magnesium Level 1.7, Iron Level [Pending], Unsaturated Iron Binding [ Pending], Total Bilirubin 0.5, Aspartate Amino Transf (AST/SGOT) 21, Alanine Aminotransferase (ALT/SGPT) 17, Alkaline Phosphatase 72, Lactate Dehydrogenase [ Pending], Total Creatine Kinase 171, Total Protein 6.5L, Albumin 3.4L, Globulin 3.1, Albumin/Globulin Ratio 1.0, Carcinoembryonic Antigen [Pending], Vitamin B12 Level [Pending], Folate [Pending], Thyroid Stimulating Hormone (TSH) [ Pending], Free Thyroxine [Pending], Free Triiodothyronine [Pending], Cortisol [ Pending] 10/19/16 18:00: Urine Color Pale yellow, Urine Appearance Slightly cloudy, Urine pH 5, Urine Specific [place] 1.015, Urine Protein 2+H, Urine Glucose (UA) Negative, Urine Ketones Negative, Urine Occult Blood 5+H, Urine Nitrite Negative, Urine Bilirubin Negative, Urine Urobilinogen Normal, Urine Leukocyte Esterase 3+H, Urine RBC 5-10H, Urine WBC TntcH, Urine Squamous Epithelial Cells None, Urine Bacteria ModerateH, Urine Eosinophils None seen, Urine Osmolality [Pending], Urine Random Sodium [Pending], Urine Random Chloride [Pending], Urine Potassium Timed [Pending] 10/20/16 06:45: White Blood Count 9.0, Red Blood Count 3.48L, Hemoglobin 10.6L, Hematocrit 31.3L , Mean Corpuscular Volume 90, Mean Corpuscular Hemoglobin 30.4, Mean Corpuscular Hemoglobin Concent 33.8, Red Cell Distribution Width 13.8, Platelet Count 189, Mean Platelet Volume 8.1, Neutrophils (%) (Auto) 72.9, Lymphocytes (% ) (Auto) 17.7L, Monocytes (%) (Auto) 6.9, Eosinophils (%) (Auto) 1.9, Basophils (%) (Auto) 0.5 Current Medications Medications (Trade) Dose Ordered Sig/Amy Route PRN Reason Start Time Stop Time Status Last Admin Dose Admin Acetaminophen (Tylenol) 650 mg Q4H PRN ORAL fever 10/18/16 19:15 11/17/16 19:14 Albuterol/ Ipratropium (DuoNeb 0.5-3(2.5)mg/3ml) 3 ml Q4H PRN HHN Shortness of Breath 10/18/16 19:15 10/23/16 19:14 Docusate Sodium (Colace) 100 mg TID ORAL 10/20/16 09:00 11/19/16 08:59 10/20/16 09:47 Heparin Sodium (Porcine) (Heparin 5000 units/ml) 5,000 units EVERY 12 HOURS SUBQ 10/18/16 21:00 11/17/16 20:59 10/19/16 20:13 Morphine Sulfate (Morphine Sulfate) 2 mg Q4H PRN IVP Moderate Pain (Pain Scale 4-6) 10/18/16 19:15 10/25/16 19:14 Nitroglycerin (Ntg) 0.4 mg Q5MIN X 3 DOSES PRN SL Prn Chest Pain 10/18/16 19:15 11/17/16 19:14 Ondansetron HCl (Zofran) 4 mg Q6H PRN IVP Nausea & Vomiting 10/18/16 19:15 11/17/16 19:14 Polyethylene Glycol (Miralax) 17 gm DAILYPRN PRN ORAL Constipation 10/18/16 19:15 11/17/16 19:14 Sodium Chloride (Sodium Chloride 1000ml bag) 1,000 ml @ 50 mls/hr Q20H IVLG 10/18/16 21:00 11/17/16 20:59 10/19/16 17:53 Temazepam (Restoril) 15 mg HSPRN PRN ORAL Insomnia 10/18/16 19:15 10/25/16 19:14 10/19/16 21:30 CHAN JAVED Oct 20, 2016 12:55
[2016-10-20 14:48] LABS: LACTATE DEHYDROGENASE 229 U/L (135-230); URIC ACID 7.4 mg/dL (3.0-7.5)
[2016-10-20 15:35] LABS: FREE T3 1.3 pg/mL (2.3-4.2)
[2016-10-20 15:53] LABS: IRON 23 ug/dL (59-158); TOTAL IRON BINDING CAPACITY 189 ug/dL (250-400)
[2016-10-20 16:00] VITALS: BP 142/77
--- NOTE | 2016-10-20 18:00 | Cardiology Progress Note ---
Assessment/Plan Assessment/Plan orthostatic hypotesnion with tachy likely volume related bladder outlet obstruction renal insuf improving with hydration uti cr seems stable ivf to be contienued ot / pt howm when nto orthostic and if ok with id adn dr awais lee to have orthostatic vital as unalbe to stnd per staff tele neg to med surg Subjective Cardiovascular: Denies: chest pain, lightheadedness, palpitations Respiratory: Denies: SOB with excertion, shortness of breath Gastrointestinal/Abdominal: Denies: abdomen distended Genitourinary: Denies: burning Objective Last 24 Hour Vital Signs Date Time Temp Pulse Resp B/P Pulse Ox O2 Delivery O2 Flow Rate FiO2 10/20/16 16:00 97.3 75 20 142/77 99 10/20/16 11:45 72 10/20/16 11:45 96.6 71 20 132/72 96 Room Air 10/20/16 11:40 71 10/20/16 08:22 74 10/20/16 08:05 96.1 74 20 134/66 97 Room Air 10/20/16 04:00 79 82 10/20/16 04:00 85 10/20/16 04:00 97.5 79 16 137/79 98 Room Air 10/20/16 00:00 98.2 81 16 115/68 97 Room Air 10/20/16 00:00 69 10/19/16 20:00 96.1 80 18 126/73 98 Room Air 10/19/16 20:00 81 General Appearance: no apparent distress, alert Neck: no JVD Cardiovascular: normal rate, regular rhythm Respiratory/Chest: lungs clear, normal breath sounds Abdomen: normal bowel sounds, non tender, soft Extremities: no swelling Intake and Output 10/19/16 10/20/16 19:00 07:00 Intake Total 620 ml 710 ml Output Total 300 ml 1000 ml Balance 320 ml -290 ml Intake Oral 120 ml IV Total 500 ml 710 ml Output Urine Total 300 ml 1000 ml Laboratory Tests Test 10/19/16 18:00 10/20/16 06:45 Urine Color Pale yellow Urine Appearance Slightly cloudy Urine pH 5 (4.5-8.0) Urine Specific [place] 1.015 (1.005-1.035) Urine Protein 2+ (NEGATIVE) H Urine Glucose (UA) Negative (NEGATIVE) Urine Ketones Negative (NEGATIVE) Urine Occult Blood 5+ (NEGATIVE) H Urine Nitrite Negative (NEGATIVE) Urine Bilirubin Negative (NEGATIVE) Urine Urobilinogen Normal MG/DL (0.0-1.0) Urine Leukocyte Esterase 3+ (NEGATIVE) H Urine RBC 5-10 /HPF (0 - 0) H Urine WBC Tntc /HPF (0 - 0) H Urine Squamous Epithelial Cells None /LPF (NONE/OCC) Urine Bacteria Moderate /HPF (NONE) H Urine Eosinophils None seen Urine Osmolality Pending Urine Random Sodium 78 mmol/L Urine Random Chloride 72 mmol/L Urine Potassium Timed 26 mmol/L White Blood Count 9.0 K/UL (4.8-10.8) Red Blood Count 3.48 M/UL (4.70-6.10) L Hemoglobin 10.6 G/DL (14.2-18.0) L Hematocrit 31.3 % (42.0-52.0) L Mean Corpuscular Volume 90 FL (80-99) Mean Corpuscular Hemoglobin 30.4 PG (27.0-31.0) Mean Corpuscular Hemoglobin Concent 33.8 G/DL (32.0-36.0) Red Cell Distribution Width 13.8 % (11.6-14.8) Platelet Count 189 K/UL (150-450) Mean Platelet Volume 8.1 FL (6.5-10.1) Neutrophils (%) (Auto) 72.9 % (45.0-75.0) Lymphocytes (%) (Auto) 17.7 % (20.0-45.0) L Monocytes (%) (Auto) 6.9 % (1.0-10.0) Eosinophils (%) (Auto) 1.9 % (0.0-3.0) Basophils (%) (Auto) 0.5 % (0.0-2.0) TYLER ANSARI Oct 20, 2016 18:00
[2016-10-20 19:00] VITALS: BP 120/63
[2016-10-20] MEDS ORDERED: Cefepime HCl 1 GM in D5W 55 ML IVPB SCH (23:00)
[2016-10-21 00:28] VITALS: BP 140/81
[2016-10-21 04:24] VITALS: BP 150/88
[2016-10-21 08:00] VITALS: BP 129/69
--- NOTE | 2016-10-21 08:55 | Infectious Diseases Prog Note ---
Assessment/Plan Assessment/Plan A: Patient is an 80-year-old male w Leukocytosis , SP ( due to acute stress more than UTI ) doubt UTI m ( nl WBC and afebrile ) Pyuria RAVI improving US : Negative for hydronephrosis SP fall Ch Milner Cholelithiasis. History of urinary obstruction PLAN: monitor pt off of AB Rx ( cefepime d# 2 ) Monitor blood culture Monitor urine culture. urinalysis Subjective Constitutional: Denies: anorexia, chills, drenching sweats, fatigue, fever, no symptoms, other Allergies: Coded Allergies: No Known Allergies (Unverified , 10/18/16) Objective Vital Signs Last 24 Hour Vital Signs Date Time Temp Pulse Resp B/P Pulse Ox O2 Delivery O2 Flow Rate FiO2 10/21/16 04:24 98.2 72 20 150/88 99 Room Air 10/21/16 00:29 74 75 10/21/16 00:28 98.5 74 19 140/81 99 Room Air 10/20/16 20:00 77 10/20/16 19:00 96.8 76 20 120/63 96 Room Air 10/20/16 16:00 82 10/20/16 16:00 97.3 75 20 142/77 99 10/20/16 12:00 83 10/20/16 11:45 72 10/20/16 11:45 96.6 71 20 132/72 96 Room Air 10/20/16 11:40 71 Height (Feet): 5 Height (Inches): 7.00 Weight (Pounds): 120 HEENT: atraumatic Respiratory/Chest: no accessory muscle use Cardiovascular: no gallop/murmur Abdomen: no mass Microbiology Date/Time Source Procedure Growth Status 10/19/16 14:40 Blood Blood Culture - Preliminary NO GROWTH AFTER 24 HOURS Resulted 10/19/16 14:30 Blood Blood Culture - Preliminary NO GROWTH AFTER 24 HOURS Resulted Current Medications Medications (Trade) Dose Ordered Sig/Amy Route PRN Reason Start Time Stop Time Status Last Admin Dose Admin Acetaminophen (Tylenol) 650 mg Q4H PRN ORAL fever 10/18/16 19:15 11/17/16 19:14 Albuterol/ Ipratropium (DuoNeb 0.5-3(2.5)mg/3ml) 3 ml Q4H PRN HHN Shortness of Breath 10/18/16 19:15 10/23/16 19:14 Docusate Sodium (Colace) 100 mg TID ORAL 10/20/16 09:00 11/19/16 08:59 10/20/16 17:34 Heparin Sodium (Porcine) (Heparin 5000 units/ml) 5,000 units EVERY 12 HOURS SUBQ 10/18/16 21:00 11/17/16 20:59 10/19/16 20:13 Morphine Sulfate (Morphine Sulfate) 2 mg Q4H PRN IVP Moderate Pain (Pain Scale 4-6) 10/18/16 19:15 10/25/16 19:14 Nitroglycerin (Ntg) 0.4 mg Q5MIN X 3 DOSES PRN SL Prn Chest Pain 10/18/16 19:15 11/17/16 19:14 Ondansetron HCl (Zofran) 4 mg Q6H PRN IVP Nausea & Vomiting 10/18/16 19:15 11/17/16 19:14 Polyethylene Glycol (Miralax) 17 gm DAILYPRN PRN ORAL Constipation 10/18/16 19:15 11/17/16 19:14 Sodium Chloride (Sodium Chloride 1000ml bag) 1,000 ml @ 50 mls/hr Q20H IVLG 10/18/16 21:00 11/17/16 20:59 10/20/16 17:26 Temazepam (Restoril) 15 mg HSPRN PRN ORAL Insomnia 10/18/16 19:15 10/25/16 19:14 10/20/16 19:25 LORENZO CUTLER M.D. Oct 21, 2016 08:55
[2016-10-21 09:26] LABS: CORTISOL LC 15.5 ug/dL (.)
[2016-10-21] MEDS: Docusate 100mg cap ORAL SCH ×3 (10:34→18:30)
[2016-10-21] MEDS: Heparin 5000 units/ml inj SUBQ SCH ×2 (10:35→20:49)
[2016-10-21] MEDS ORDERED: Nitroglycerin Subl 0.4mg tab (Bottle Of 25) SL PRN (11:15)
[2016-10-21 11:52] VITALS: BP 148/68
[2016-10-21] MEDS ORDERED: Miralax 17gm pkt ORAL PRN (13:18)
[2016-10-21] MEDS ORDERED: DuoNeb 0.5-3(2.5)mg/3ml neb HHN PRN (15:15)
[2016-10-21] MEDS ORDERED: Morphine Sulfate 2mg/ml Inj IVP PRN (15:15)
[2016-10-21 15:43] VITALS: BP 138/77
--- NOTE | 2016-10-21 15:45 | Pulmonology Progress Note ---
Assessment/Plan Problems: (1) Sepsis (2) ATN (acute tubular necrosis) (3) Anemia (4) UTI (urinary tract infection) (5) Orthostatic hypotension (6) Chronic indwelling Milner catheter Assessment/Plan continue IV fluids renal function improving check electrolytes. Urine is negative abx stopped start ot. continues to improve dc home with home health Subjective ROS Limited/Unobtainable: No Constitutional: Reports: no symptoms HEENT: Repors: no symptoms Respiratory: Reports: no symptoms Cardiovascular: Reports: no symptoms Allergies: Coded Allergies: No Known Allergies (Unverified , 10/18/16) Objective Last 24 Hour Vital Signs Date Time Temp Pulse Resp B/P Pulse Ox O2 Delivery O2 Flow Rate FiO2 10/21/16 11:52 96.8 73 20 148/68 99 Room Air 10/21/16 09:00 73 77 78 10/21/16 08:00 96.8 77 17 129/69 96 Room Air 10/21/16 04:24 98.2 72 20 150/88 99 Room Air 10/21/16 00:29 74 75 10/21/16 00:28 98.5 74 19 140/81 99 Room Air 10/20/16 20:00 77 10/20/16 19:00 96.8 76 20 120/63 96 Room Air 10/20/16 16:00 82 10/20/16 16:00 97.3 75 20 142/77 99 Intake and Output 10/20/16 10/21/16 19:00 07:00 Intake Total 410 ml 840 ml Output Total 400 ml 700 ml Balance 10 ml 140 ml Intake Oral 360 ml 240 ml IV Total 50 ml 600 ml Output Urine Total 400 ml 700 ml # Voids 2 General Appearance: WD/WN HEENT: normocephalic, anicteric Respiratory/Chest: chest wall non-tender, lungs clear Cardiovascular: normal peripheral pulses, normal rate Abdomen: normal bowel sounds, soft, non tender Genitourinary: normal external genitalia Extremities: no cyanosis Skin: no rash Microbiology Date/Time Source Procedure Growth Status 10/19/16 14:40 Blood Blood Culture - Preliminary NO GROWTH AFTER 24 HOURS Resulted 10/19/16 14:30 Blood Blood Culture - Preliminary NO GROWTH AFTER 24 HOURS Resulted 10/19/16 18:00 Urine,Clean Catch Urine Culture - Preliminary Resulted Current Medications Medications (Trade) Dose Ordered Sig/Amy Route PRN Reason Start Time Stop Time Status Last Admin Dose Admin Acetaminophen (Tylenol) 650 mg Q4H PRN ORAL fever 10/21/16 15:15 11/20/16 15:14 Albuterol/ Ipratropium (DuoNeb 0.5-3(2.5)mg/3ml) 3 ml Q4H PRN HHN Shortness of Breath 10/21/16 15:15 10/26/16 15:14 Docusate Sodium (Colace) 100 mg TID ORAL 10/21/16 13:00 11/20/16 12:59 10/21/16 13:21 Heparin Sodium (Porcine) (Heparin 5000 units/ml) 5,000 units EVERY 12 HOURS SUBQ 10/21/16 21:00 11/20/16 20:59 Morphine Sulfate (Morphine Sulfate) 2 mg Q4H PRN IVP Moderate Pain (Pain Scale 4-6) 10/21/16 15:15 10/28/16 15:14 Nitroglycerin (Ntg) 0.4 mg Q5MIN X 3 DOSES PRN SL Prn Chest Pain 10/21/16 11:15 11/20/16 11:14 Ondansetron HCl (Zofran) 4 mg Q6H PRN IVP Nausea & Vomiting 10/21/16 13:15 11/20/16 13:14 Polyethylene Glycol (Miralax) 17 gm DAILYPRN PRN ORAL Constipation 10/21/16 13:18 11/20/16 13:17 10/21/16 13:22 Sodium Chloride (Sodium Chloride 1000ml bag) 1,000 ml @ 50 mls/hr Q20H IVLG 10/21/16 13:00 11/20/16 12:59 10/21/16 13:22 Temazepam (Restoril) 15 mg HSPRN PRN ORAL Insomnia 10/21/16 19:15 10/28/16 19:14 CHAN JAVED Oct 21, 2016 15:45
--- NOTE | 2016-10-21 15:47 | Cardiology Report ---
APPROVED REPORT EKG Measurement Heart [id number] Normal sinus rhythm Incomplete right bundle branch block Left anterior fascicular block Septal infarct, age undetermined Abnormal ECG
[2016-10-21 20:00] VITALS: BP 142/76
[2016-10-22] VITALS: BP 137/64
[2016-10-22 04:00] VITALS: BP 148/88
[2016-10-22 08:00] VITALS: BP 141/71
[2016-10-22] MEDS: Heparin 5000 units/ml inj SUBQ SCH (09:00)
[2016-10-22] MEDS: Docusate 100mg cap ORAL SCH (09:10)
[2016-10-22 12:00] VITALS: BP 109/73
[2016-10-22] MEDS ORDERED: D5W 275ml ONE (12:39)
[2016-10-22] MEDS ORDERED: Tubing IV Secondary IV ONE (12:39)
--- NOTE | 2016-10-22 12:52 | Cardiology Report ---
APPROVED REPORT EXAM: Two-dimensional and M-mode echocardiogram with Doppler and color Doppler. INDICATION Left ventricular function M-Mode DIMENSIONS Left Atrium (MM)3.9 (1.6-4.0cm) Aortic Root2.9 (2.0-3.7cm) Aortic Cusp Exc.1.9 (1.5-2.0cm) Normal left ventricular chamber size, systolic function and wall motion. M-mode measurements not obtainable due to cardiac structure. Left ventricular ejection fraction estimated to be 60-65%. No evidence of left ventricular hypertrophy. No evidence of pericardial fat or effusion. Mild left atrial enlargement by 2D. Right cardiac chamber sizes are within normal limits. Focal aortic valve sclerosis with adequate cusp excursion Thickened mitral valve leaflets with normal excursion. Mitral annulus and aortic root calcification. Pulmonic valve not well visualized. Normal tricuspid valve structure. IVC is normal in size with physiologic collapse. A color flow and spectral Doppler study was performed and revealed: Mild aortic regurgitation. Mild mitral regurgitation. Left ventricular diastolic dysfunction grade 1. Trace tricuspid regurgitation. Tricuspid systolic velocities suggests peak right ventricular systolic pressure of 22 mmHg
--- NOTE | 2016-10-25 11:54 | Discharge Summary ---
Discharge Summary Hospital Course Date of Admission Oct 18, 2016 at 16:05 Date of Discharge Oct 22, 2016 at 12:40 Admitting Diagnosis Falls/orthostatic hypotension HPI Bebeto June is a 80 year old male who was admitted on Oct 18, 2016 at 16: 05 for Falls/Orthostatic Hypotension Hospital Course dc summary dictated # [id number] Discharge Medications Medication Profile: No Active Prescriptions or Reported Meds Discharge Condition Upon Discharge: improving Discharge Disposition Patient was discharged Home with Home Health(06) Discharge Diagnoses: Discharge Instructions Discharge Instructions Special Instructions I have been assigned to complete a D/C Summary on this account. I was not involved in the patient management Lisa Mayorga NP ([place]) Oct 25, 2016 11:54
--- NOTE | 2016-10-25 22:29 | Discharge Summary 2 SIG ---
DATE OF ADMISSION: 10/18/2016 DATE OF DISCHARGE: 10/22/2016 REASON FOR ADMISSION: 80-year-old male brought in by ambulance for weakness and fall at home. The patient was returning home after visit from [facility] where he was given antibiotic. His Milner catheter was replaced. He slipped and fell at home. Emergency medical ambulance service endorsed significant orthostatic hypotension on the scene. The patient denied chest pain, shortness of breath, palpitation, blackouts, dizziness, headache, or lightheadedness. He denies hitting the head. He denied nausea, vomiting, change in vision, or blurry vision. He denied any history of hypertension. Workup in the emergency room revealed the patient has significant orthostasis on standing but stable blood pressure while lying down. No signs of head trauma. No focal neuro deficits. Laboratory workup revealed leukocytosis of 15, stable hemoglobin and hematocrit. Elevated serum creatinine of 3.2. Urinalysis with evidence of UTI. The patient undergone chest x-ray, which revealed no acute cardiopulmonary disease. X-ray of the T-spine revealed no fracture, no dislocation, no soft tissue swelling. The patient had an abrasion on the back of the thoracic area. EKG revealed normal sinus rhythm with first-degree AV block. The patient admitted for further management. ADMITTING DIAGNOSES: 1. Leukocytosis 2. Possible sepsis. 3. Status post mechanical fall. 4. Orthostatic hypotension. 5. Back abrasion. 6. Possible urinary tract infection. 7. Acute tubular necrosis. HOSPITAL COURSE: The patient admitted to the hospital. Blood pressure was closely monitored, noted orthostatic changes. Troponin negative. No evidence of arrhythmia. Echocardiogram revealed normal ejection fraction of 60% to 65%, right ventricular systolic pressure of 22, mild mitral regurgitation, mild left ventricular hypertrophy. The patient was tachycardic. Orthostatic hypotension with a tachycardia, was suggestive of volume depletion. The patient received IV fluids. The patient does not take any antihypertensive or diuretic medication at home. The patient was given intravenous fluids. Leukocytosis resolved. With IV fluids, renal parameters trending down and improved, creatinine down to 1.9. . Renal ultrasound revealed no hydronephrosis and normal kidney echogenicity bilaterally. Acute tubular necrosis likely was precipitated by dehydration, Blood culture negative. Urine culture with mixed urogenital contaminants. Antibiotics stopped per Infectious Disease recommendation. The patient was working with the physical and occupational therapists. Fall precaution maintained. The patient was stable for discharge home with a home health. Close monitoring of cardiopulmonary status. DISCHARGE DIAGNOSES: 1. Leukocytosis likely reactive, resolved. 2. Status post non syncopal, mechanical fall. 3. Orthostatic hypotension, likely secondary to volume depletion. 4. Dehydration, resolved. 5. Acute tubular necrosis on chronic kidney disease, likely secondary to dehydration. 6. Back abrasion. DISCHARGE MEDICATIONS: See medication reconciliation list. The patient has no home medication. DISCHARGE INSTRUCTIONS: Follow up with the primary medical doctor and home health for close monitoring. Missy Currie M.D. Lisa DonnellyPeconic Bay Medical CenterRoselia NStar DR: Samina JOB#: [id number] CC: MEAGAN
--- NOTE | 2016-11-09 14:18 | Cardiology Report ---
APPROVED REPORT EKG Measurement Heart [id number] Normal sinus rhythm Incomplete right bundle branch block Septal infarct, age undetermined Abnormal ECG
== END 2016-10-22 12:40 | disposition home health service (06) | DRG 312 ==
LOC: ENRESERVTM → ENRESERVDT → EDBD 15:01 → EMR 15:26 → 2E 16:05 → EDBEDREQ 17:55 → 4E 10-21 11:33
DX: I95.1 Orthostatic hypotension (principal); N17.0 Acute kidney failure with tubular necrosis; N39.0 Urinary tract infection, site not specified; D64.9 Anemia, unspecified; S20.419A Abrasion of unspecified back wall of thorax, initial encounter; W10.9XXA Fall (on) (from) unspecified stairs and steps, initial encounter; Y92.89 Other specified places as the place of occurrence of the external cause; E86.0 Dehydration; N18.9 Chronic kidney disease, unspecified; R00.0 Tachycardia, unspecified; N32.0 Bladder-neck obstruction; I34.0 Nonrheumatic mitral (valve) insufficiency; I44.0 Atrioventricular block, first degree
CPT/HCPCS: 36415; 71010; 72070; 76775; 80053; 81001; 82270; 82378; 82436; 82533; 82550; 82553; 82607; 82746; 83540; 83550; 83615; 83735; 83930; 83935; 84100; 84133; 84300; 84439; 84443; 84481; 84484; 84550; 85007; 85025; 85044; 85060; 85610; 85651; 85730; 87040; 87086; 89050; 93005; 93306